=== PATIENT | male | born 1950 | race Caucasian/White ===

== ENCOUNTER 2022-02-26 09:13 | Outpatient (CLI) | payer OTHER, MEDICARE | END 2022-02-26 18:05 | disposition home or self-care (01) | LOC: SCT 09:13 | PROVIDERS: ATTEND Internal Medicine | DX: J44.9 Chronic obstructive pulmonary disease, unspecified (principal); I70.0 Atherosclerosis of aorta; M47.814 Spondylosis without myelopathy or radiculopathy, thoracic region; J98.4 Other disorders of lung; Z72.0 Tobacco use | CPT/HCPCS: 71250-TC; 76376 ==